=== PATIENT | male | born 1960 | race Caucasian/White ===

== ENCOUNTER → 2018-07-29 09:29 | Outpatient (CLI) | payer OTHER, SELFPAY ==
[2018-07-29 12:06] LABS: Prostate Specific Antigen 0.602 ng/mL (0.10-4.00)
== END ==
PROVIDERS: Family Provider Family Medicine; PCP Family Medicine; Visit Provider Urology
DX: R39.11 Hesitancy of micturition (principal); R39.9 Unspecified symptoms and signs involving the genitourinary system
CPT/HCPCS: 36415; 84153

== ENCOUNTER 2018-09-19 07:37 | Day surgery (SDC) | payer OTHER, SELFPAY ==
--- NOTE | 2018-09-19 | PATH_ITS ---
[facility] Accession Number: [id number] . 01 Material submitted: . PART A: colon - ASCENDING COLON BIOPSY PART B: colon - BIOPSY AT 40 CM PART C: colon - BIOPSY AT 20 CM PART D: rectum - BIOPSY IN THE RECTUM . 01 Clinical history: . SCREENING COLONOSCOPY . 02 Diagnosis: A. Ascending Colon, Biopsy: Sessile serrated adenoma. . B. Colon, 40 CM, Biopsy: Tubular adenoma in 3 of 5 fragments. . C. Colon, 20 CM, Biopsy: Tubular adenoma. . D. Rectum, Biopsy: Hyperplastic rectal mucosa with focal features suggestive of mucosal prolapse. Negative for dysplasia and malignancy. . I09/22/2018 . 02 Electronically signed: . Felicity Ramos MD, Pathologist NPI- [id number] . 01 Gross description: . Part A: ASCENDING COLON BIOPSY: Received in formalin are 4 fragment(s) of doss, soft tissue measuring 0.1 x 0.1 x 0.1 cm to 0.3 x 0.3 x 0.2 cm which is entirely submitted and submitted entirely in 1 cassette(s) Part B: BIOPSY AT 40 CM: Received in formalin are multiple fragment(s) of doss, soft tissue measuring 0.1 x 0.1 x 0.1 cm to 0.3 x 0.2 x 0.2 cm which is entirely submitted and submitted entirely in 1 cassette(s) Part C: BIOPSY AT 20 CM: Received in formalin is 1 fragment(s) of doss, soft tissue measuring 0.4 x 0.4 x 0.3 cm which is entirely submitted and submitted entirely in 1 cassette(s) Part D: BIOPSY IN THE RECTUM: Received in formalin are 2 fragment(s) of doss, soft tissue measuring 0.1 x 0.1 x 0.1 cm to 0.2 x 0.2 x 0.2 cm which is entirely submitted and submitted entirely in 1 cassette(s) /D[facility] /[facility] . 02 Pathologist provided ICD-10: D12.2, D12.6 . 02 CPT . 894714, 170513, 535395, 173314 Performed at: 01 [facility] [address] [address], [place], [place] [id number] MD Clovis Wyatt MD Phone: [phone] Performed at: [address] [facility] [address] [place], [place] [id number] MD Felicity Ramos MD Phone: [phone]
[2018-09-19 07:56] VITALS: BP 109/79; PULSE 89; RESP 15; TEMP 36.6; O2SAT 98; BMI 21.1
[2018-09-19] MEDS: SODIUM CHLORIDE 0.9% 1,000 ML 200 ML IV (08:10)
--- NOTE | 2018-09-19 08:38 | P.HP_ITS ---
History of Present Illness Date Patient Seen: 09/19/18 Time Patient Seen: 08:37 Chief complaint: [id number] SCREENING COLONOSCOPY Narrative: Patient is a gentleman here for screening colonoscopy. Last exam 5 years ago. Father had colon cancer. Patient History Surgical History (Updated 09/19/18 @ 08:38 by Gen Medina MD) S/P TURP (Resolved) Social History household members: spouse Family & Social History Social History: household members spouse Meds Allergies Allergy/AdvReac Type Severity Reaction Status Date / Time hydrocodone [From VICODIN] AdvReac Intermediate Nausea Verified 09/19/18 07:51 Review of Systems Review of Systems All systems reviewed & are unremarkable except as noted in HPI and below Exam Vital Signs (past 8 hours): - 09/19/18 07:56 Temperature 97.9 F Pulse Rate 89 Respiratory Rate 15 Blood Pressure 109/79 Pulse Oximetry 98 Oxygen Delivery Method Room Air Narrative Exam Narrative: Pleasant cooperative patient no apparent distress. Lungs are clear to auscultation. No rales or rhonchi. Heart regular rate and rhythm no murmur gallop. Abdomen is soft nontender without mass. No obvious hernias. Patient is alert and oriented x3. Assessment & Plan Assessment & Plan narrative: The patient for a screening colonoscopy. I have discussed the procedure with them. Risks of bleeding, perforation which would necessitate major operation, failure to find remove all lesions, the potential tattoo were all discussed. All questions were answered. They wished to proceed .
--- NOTE | 2018-09-19 08:42 | PM.PREOP ---
Pre-operative Note Interval Note History & Physical reviewed/Exam performed by Physician: Yes Changes to H&P: No ASA Class (for procedural sedation): I
[2018-09-19] MEDS: ONDANSETRON 4 MG/2 ML INJ IV (08:43)
--- NOTE | 2018-09-19 09:14 | PM.OP.ENDO ---
Operative Date/Time/Diagnoses Date of procedure: 09/19/18 Time of procedure: 09:14 Post-op diagnosis: same (Multiple polyps. Internal hemorrhoids small. Sigmoid diverticulosis) Procedure & Clinicians Study performed: EGD with cold biopsy and hot snare polypectomy Same procedure as scheduled: Yes Indications: Screening Surgeon: Gen Medina Procedure Notes SCOAP/Timeout: Performed Procedure in detail: The patient was placed in the left lateral decubitus position and underwent IV sedation directed by the surgeon consisting of fentanyl and Versed. Digital exam was unremarkable. The prostate is fairly flat. No masses were felt. The scope was inserted and advanced through the rectum into the sigmoid, descending, transverse, and ascending colon. I noted a bright red polypoid lesion at about 20 cm which I decided to remove on the way out. The patient had sigmoid diverticulosis. The cecum was reached identified by the ileocecal valve and the appendiceal opening. The scope was gradually brought out. Polyps were found at the ascending colon, 40 cm, 20 cm and just inside the anus in the rectum. The lesion in the ascending colon was biopsied and cauterized to completely destroy it. The others were removed with biopsy forceps. The bright red lesion at 20 cm was removed with a hot snare.. The scope ultimately was retroflexed in the rectum. The appearance was remarkable for 2 small polyps which were biopsied and removed and for small internal hemorrhoids without ulceration.. The scope was removed and the patient tolerated the procedure well. Prep was very good Scope withdrawal time: 8min(18total) Sedation minutes: 27 Findings: diverticulosis, internal hemorrhoids and polyp Recommendations: Colonscopy in 5 years Follow up: as needed Disposition: PACU
[2018-09-19] MEDS: fentaNYL 250 MCG/5 ML INJ IV (09:16)
[2018-09-19] MEDS: MIDAZOLAM 5 MG/5 ML VIAL IV (09:17)
[2018-09-19 09:18] VITALS: BP 108/78; PULSE 89; RESP 16; TEMP 36.4; O2SAT 96
[2018-09-19 09:23] VITALS: BP 110/74; PULSE 88; RESP 16; TEMP 36.6; O2SAT 95
[2018-09-19 09:40] VITALS: BP 109/76; PULSE 88; RESP 16; TEMP 36.7; O2SAT 98
--- NOTE | 2018-09-19 10:01 | SUR.PHASEII ---
Pt dressed when ready, at bedside, all voiced an understanding of d/c instructions and pt left unit in stable condition.
== END 2018-09-19 09:57 | disposition home or self-care (01) ==
PROVIDERS: Family Provider Family Medicine; PCP Family Medicine; Visit Provider Specialist
PROC: 0DJD8ZZ Inspection of Lower Intestinal Tract, Via Natural or Artificial Opening Endoscopic (ICD-10-PCS; CPT 45378; principal; 2018-09-19 08:45)
DX: Z12.11 Encounter for screening for malignant neoplasm of colon (principal); Z80.0 Family history of malignant neoplasm of digestive organs; K57.30 Diverticulosis of large intestine without perforation or abscess without bleeding; K64.8 Other hemorrhoids; D12.2 Benign neoplasm of ascending colon; D12.6 Benign neoplasm of colon, unspecified
CPT/HCPCS: 45385; 45380; 99152; J2250; J2405; J3010

== ENCOUNTER → 2019-10-10 08:45 | Outpatient (CLI) | payer OTHER, SELFPAY ==
[2019-10-10 10:43] LABS: Prostate Specific Antigen 0.552 ng/mL (0.10-4.00)
== END ==
PROVIDERS: Family Provider Family Medicine; PCP Family Medicine; Referring Provider Urology; Visit Provider Urology
DX: R39.9 Unspecified symptoms and signs involving the genitourinary system (principal)
CPT/HCPCS: 36415; 84153

== ENCOUNTER → 2021-04-10 16:27 | Outpatient (CLI) | payer OTHER, SELFPAY ==
--- NOTE | 2021-04-10 | DI.RAD.S_ITS ---
PROCEDURE: XR KNEE RT 3V INDICATIONS: Rt Knee Pain TECHNIQUE: 3 views of the knee were acquired. COMPARISON: [facility], , KNEE 3V LEFT, 02/04/2012, 8:54. FINDINGS: Bones: No fractures or dislocations. No suspicious bony lesions. Mild narrowing of the medial femoral tibial joint and tricompartmental periarticular osteophyte formation. Soft tissues: Small joint effusion. No suspicious soft tissue calcifications. IMPRESSION: Mild tricompartmental knee joint degeneration, most notably involving the medial femorotibial joint. Dictated by: Al Hernandez [facility] Interpreted: Josh Mon MD on 04/10/2021 at 16:51 Transcribed by: BASIL on 04/10/2021 at 16:53 Approved by: Josh Mon M.D. on 04/10/2021 at 17:04
== END ==
PROVIDERS: Family Provider Family Medicine; PCP Family Medicine; Referring Provider Family Medicine; Visit Provider Family Medicine
DX: M25.561 Pain in right knee (principal); M17.11 Unilateral primary osteoarthritis, right knee
CPT/HCPCS: 73562

== ENCOUNTER → 2021-05-02 12:24 | Outpatient (CLI) | payer OTHER, SELFPAY ==
--- NOTE | 2021-05-02 | DI.MRI.S_ITS ---
PROCEDURE: MR KNEE RT WO CON INDICATIONS: Pain in right knee TECHNIQUE: Noncontrast sagittal PD fast spin echo and T2 fast spin echo with fat saturation, sagittal 3-D FLASH with fat saturation; coronal T1 spin echo and PD fast spin echo with fat saturation, and axial PD fast spin echo with fat saturation through the knee. COMPARISON: [facility], CR, XR KNEE RT 3V, 04/10/2021, 16:29. FINDINGS: Image quality: Excellent. Menisci: There is medial meniscal extrusion. Complex tear of the body and posterior horn of the medial meniscus. The lateral meniscus demonstrates normal morphology and internal signal. The meniscal root ligaments appear intact. Cruciate ligaments: The anterior and posterior cruciate ligaments appear intact. There are several cysts posterior to the PCL. The largest measures 0.5 x 0.6 x 1.2 cm Medial structures: The medial collateral ligament appears intact. The semimembranosus tendon insertions and meniscocapsular junction appear intact. Visualized portions of the pes anserinus tendons appear normal. There is fluid in the medial collateral ligament bursa, semimembranous bursa and pes anserinus bursa, consistent with bursitis. Lateral structures: The lateral collateral ligament, long and short heads of the biceps femoris tendon appear intact. The popliteus tendon appears normal. Iliotibial band appears normal. Anterior structures: The quadriceps and patellar tendons appear intact. Patellar alignment is normal. No femoral trochlear dysplasia or ventral trochlear prominence. No edema in the infrapatellar fat pad. Bones and cartilage: No bone marrow contusions or fractures. Chondral malacia, most pronounced in the medial femorotibial compartment. There is a small osteochondral lesion in the medial femoral condyle without unstable fragment. There is also a near full-thickness cartilage fissure in the superior aspect of the patella. Subchondral edema in the medial femoral condyle and medial tibial plateau and subchondral geodes. Joint space: There is small knee joint fluid. Small Squires's cyst. Couple of cysts are noted in the posterior superior knee joint, consistent with synovial cysts or ganglion cysts. Normal appearing synovial plicae are incidentally noted. IMPRESSION: 1. Medial meniscal extrusion and complex tear of the medial meniscus involving the body and posterior horn. 2. Several cysts adjacent to the posterior cruciate ligament. 3. Medial bursitis. 4. 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 There is a small osteochondral lesion in the medial femoral condyle without unstable fragment. Subchondral edema is noted in the medial femoral condyle and tibial plateau, likely reactive. 6. Small knee joint effusion. 7. Small Squires's cyst. Dictated by: Karen Holliday M.D. on 05/02/2021 at 13:35 Approved by: Karen Holliday M.D. on 05/02/2021 at 14:22
== END ==
PROVIDERS: Family Provider Family Medicine; PCP Family Medicine; Referring Provider Family Medicine; Visit Provider Family Medicine
DX: S83.231A Complex tear of medial meniscus, current injury, right knee, initial encounter (principal); M94.261 Chondromalacia, right knee; M25.461 Effusion, right knee; M71.21 Synovial cyst of popliteal space [Baker], right knee; M25.561 Pain in right knee
CPT/HCPCS: 73721